=== PATIENT | male | born 1980 | race Two or more races ===

== ENCOUNTER 2023-11-06 09:50 | Emergency (ER) | payer OTHER ==
[~2023-11-06] VITALS: Ht 177.8 cm; Wt 72.6 kg
[2023-11-06 11:01] LABS: HEMOGLOBIN 11.7 g/dL (13-16.00); MEAN CORPUSCULAR HEMOGLOBIN 27.3 pg (27.00-32.0); MEAN CORPUSCULAR HGB CONC 32.5 g/dl (32.0-36.0); PLATELET COUNT 381 K/uL (150-450); RED BLOOD COUNT 4.28 M/uL (4.00-6.00); RED CELL DISTRIBUTION WIDTH 17.6 % (11.5-14.5)
[2023-11-06 11:24] LABS: URINE APPEARANCE Clear; URINE BACTERIA 16.3 uL (0.0-1933); URINE BILIRRUBIN Negative (NEGATIVE); URINE BLOOD Small; URINE COLOR Yellow; URINE EPITHELIAL CELLS 7.5 uL (0.0-38.8); URINE GLUCOSE Negative (NEGATIVE); URINE LEUKOCYTE Trace; URINE NITRATE Negative; URINE PROTEIN Negative (NEGATIVE); URINE RBC 39.8 uL (0.0-20.8); URINE WBC 45.3 uL (0.0-23.2)
[2023-11-06 11:50] LABS: ALBUMIN 3.4 gm/dL (3.4-5.0); BILIRUBIN TOTAL 0.73 mg/dL (0.3-1.2); BILIRUBIN,CONJUGATED 0.2 mg/dL (0.0-0.2); BILIRUBIN,UNCONJUGATED 0.53 mg/dL (0.0-0.6); CALCIUM 9.3 mg/dL (8.5-10.1); CREATININE SERUM 0.86 mg/dL (0.70-1.30); GFR 96.17; POTASSIUM 3.5 mEq/L (3.5-5.1); TOTAL PROTEIN 8.7 gm/dL (6.4-8.2)
== END 2023-11-06 17:57 | disposition home or self-care (01) ==
LOC: ER 09:52
PROVIDERS: General Practice
DX: R10.31 Right lower quadrant pain (principal); C78.6 Secondary malignant neoplasm of retroperitoneum and peritoneum; Z20.822 Contact with and (suspected) exposure to COVID-19